=== PATIENT | female | born 1955 | race Caucasian/White ===

== ENCOUNTER 2018-07-09 06:58 | Outpatient (CLI) | payer BC ==
--- NOTE | 2018-07-09 09:02 | ULT ---
SONOGRAM ABDOMEN COMPLETE: HISTORY: Abdominal pain. Cirrhosis. FINDINGS: Echogenic stones and sludge are apparent within the dependent portion of the gallbladder lumen. No g allbladder wall thickening or pericholecystic fluid. The common duct is 0.3 cm. Liver is heterogene ous with a nodular contour. Spleen measures up to 9.6 cm. No free fluid. The kidneys and visualize d portions of the abdominal aorta, IVC, and pancreas are unremarkable. IMPRESSION: 1. Cholelithiasis. No evidence of acute biliary obstruction. 2. Cirrhotic appearance of the liver, although there are no other findings of portal venous hyperten garcía. POS: [facility]
== END 2018-07-09 06:59 | disposition home or self-care (01) ==
LOC: BICULT 06:58
PROVIDERS: ATTEND Internal Medicine Gastroenterology
DX: K74.69 Other cirrhosis of liver (principal); K80.20 Calculus of gallbladder without cholecystitis without obstruction
CPT/HCPCS: 76700

== ENCOUNTER 2019-04-03 06:51 | Outpatient (CLI) | payer MEDICARE ==
--- NOTE | 2019-04-03 07:43 | ULT ---
ABDOMINAL ULTRASOUND: Multiple grayscale images of right upper quadrant obtained according to protocol. INDICATION: Pain. Compared to 07/09/2018. FINDINGS: Liver: Nodular contour of the liver is again seen. Gallbladder: Shadowing cholelithiasis is redemonstrated. Gallbladder wall: Normal.. Benz's Sign: Negative. Common bile duct is normal. Ascites: None. Spleen: Unremarkable. Pancreas: Partially obscured by bowel content, limiting assessment. Kidneys: No acute abnormalities. Aorta/IVC: No acute process. IMPRESSION: 1. Cholelithiasis. 2. Cirrhotic morphology of the liver is again seen. Transcribed Date/Time: 04/03/2019 7:51 AM
== END 2019-04-03 06:52 | disposition home or self-care (01) ==
LOC: BICULT 06:51
PROVIDERS: ATTEND Internal Medicine Gastroenterology
DX: K74.69 Other cirrhosis of liver (principal); K80.20 Calculus of gallbladder without cholecystitis without obstruction
CPT/HCPCS: 76700

== ENCOUNTER 2021-08-31 06:51 | Outpatient (CLI) | payer BC, MEDICARE | END 2021-08-31 06:52 | disposition home or self-care (01) | LOC: BICULT 06:51 | PROVIDERS: ATTEND Internal Medicine Gastroenterology | DX: K75.4 Autoimmune hepatitis (principal); K76.89 Other specified diseases of liver | CPT/HCPCS: 76700 ==

== ENCOUNTER 2022-11-19 07:00 | Outpatient (CLI) | payer MEDICARE | END 2022-11-19 07:01 | disposition home or self-care (01) | LOC: BICULT 07:00 | PROVIDERS: ATTEND Internal Medicine Gastroenterology | DX: K74.69 Other cirrhosis of liver (principal); K75.4 Autoimmune hepatitis; K80.20 Calculus of gallbladder without cholecystitis without obstruction; R93.2 Abnormal findings on diagnostic imaging of liver and biliary tract | CPT/HCPCS: 76700 ==

== ENCOUNTER 2023-09-03 07:44 | Outpatient (CLI) | payer MEDICARE | END 2023-09-03 07:45 | disposition home or self-care (01) | LOC: BICULT 07:44 | PROVIDERS: ATTEND Internal Medicine Gastroenterology | DX: K74.69 Other cirrhosis of liver (principal); K76.89 Other specified diseases of liver; K80.20 Calculus of gallbladder without cholecystitis without obstruction | CPT/HCPCS: 76700 ==

== ENCOUNTER 2024-08-18 06:52 | Outpatient (CLI) | payer MEDICARE | END 2024-08-18 06:53 | disposition home or self-care (01) | LOC: BICULT 06:52 | PROVIDERS: ATTEND Internal Medicine Gastroenterology | DX: K74.60 Unspecified cirrhosis of liver (principal); K75.4 Autoimmune hepatitis; K80.20 Calculus of gallbladder without cholecystitis without obstruction; D73.89 Other diseases of spleen; K76.89 Other specified diseases of liver | CPT/HCPCS: 76705 ==